=== PATIENT | female | born 1955 | race Asian ===

== ENCOUNTER 2017-06-26 10:41 | Outpatient (CLI) | payer BC | END 2017-06-26 19:33 | disposition home or self-care (01) | LOC: SMA 10:41 | DX: Z12.31 Encounter for screening mammogram for malignant neoplasm of breast (principal) | CPT/HCPCS: G0202 ==

== ENCOUNTER 2018-07-13 15:55 | Outpatient (CLI) | payer BC | END 2018-07-13 18:39 | disposition home or self-care (01) | LOC: SMA 15:55 | DX: Z12.31 Encounter for screening mammogram for malignant neoplasm of breast (principal) | CPT/HCPCS: 77067 ==

== ENCOUNTER 2019-08-22 08:20 | Outpatient (CLI) | payer BC | END 2019-08-22 21:06 | disposition home or self-care (01) | LOC: SMA 08:20 | DX: Z12.31 Encounter for screening mammogram for malignant neoplasm of breast (principal) | CPT/HCPCS: 77067 ==

== ENCOUNTER 2020-09-04 15:28 | Outpatient (CLI) | payer BC | END 2020-09-04 18:59 | disposition home or self-care (01) | LOC: SMA 15:28 | DX: Z12.31 Encounter for screening mammogram for malignant neoplasm of breast (principal) | CPT/HCPCS: 77067 ==

== ENCOUNTER 2021-11-04 15:05 | Outpatient (CLI) | payer BC, OTHER | END 2021-11-04 19:38 | disposition home or self-care (01) | LOC: SMA 15:05 | DX: Z12.31 Encounter for screening mammogram for malignant neoplasm of breast (principal) | CPT/HCPCS: 77067 ==

== ENCOUNTER 2023-02-05 15:03 | Outpatient (CLI) | payer OTHER | END 2023-02-05 19:23 | disposition home or self-care (01) | LOC: SMA 15:03 | PROVIDERS: ATTEND Family Medicine Geriatric Medicine | DX: Z12.31 Encounter for screening mammogram for malignant neoplasm of breast (principal) | CPT/HCPCS: 77067 ==

== ENCOUNTER 2024-07-11 15:10 | Outpatient (CLI) | payer BC, OTHER | END 2024-07-11 20:26 | disposition home or self-care (01) | LOC: SMA 15:10 | PROVIDERS: ATTEND Family Medicine Geriatric Medicine | DX: Z12.31 Encounter for screening mammogram for malignant neoplasm of breast (principal); N63.24 Unspecified lump in the left breast, lower inner quadrant | CPT/HCPCS: 77067 ==